=== PATIENT | male | born 1940 | race Caucasian/White ===

== ENCOUNTER → 2016-10-11 | Outpatient (CLI) | payer MEDICARE ==
[~2016-10-11] MED LIST: ANDROGEL1.25 GM TD
[2016-10-11 09:15] LABS: HEMOGLOBIN 16.2 g/dL (14.1-18.0); LYMPH # 1.2 K/mm3 (0.7-4.5); LYMPH % 34.4 % (10-50)
[2016-10-11 10:30] LABS: BUN 12 mg/dL (7-18)
[2016-10-11 10:31] LABS: GFR (ESTIMATED) 110 ML/MIN (>60)
== END ==
LOC: LAB 09:00
PROVIDERS: Internal Medicine
DX: R59.0 Localized enlarged lymph nodes (principal); D72.89 Other specified disorders of white blood cells; R23.2 Flushing; E78.5 Hyperlipidemia, unspecified